=== PATIENT | female | born 1955 | race Caucasian/White ===

== ENCOUNTER 2023-07-24 12:50 | Outpatient (CLI) | payer MEDICARE ==
--- NOTE | 2023-08-01 09:38 | Mammography Report ---
BILATERAL DIGITAL SCREENING MAMMOGRAM 3D/2D: 07/24/2023 CLINICAL: Routine screening. No prior exams were available for comparison. There are scattered areas of fibroglandular density in both breasts (category b / 25%-50% glandular t issue). No significant masses, calcifications, or other findings are seen in either breast. IMPRESSION: NEGATIVE There is no mammographic evidence of malignancy. A 1 year screening mammogram is recommended. Based on the Tyrer Cuzick model (a risk assessment model) the patients lifetime risk is 4.4% and her 10 year risk is 2.2%. According to the ACR, ACS, and NCCN guidelines, an annual breast MRI exam goran g with mammogram is recommended if the patients lifetime risk is 20% or greater. This exam was interpreted at Station ID: [id number]. NOTE: For mammograms, a report in lay terms will be sent to the patient. Approximately 15% of breast malignancies will not be visualized mammographically. In the management of a palpable breast mass, a negative mammogram must not discourage biopsy of a clinically suspicious lesion. Electronically Signed By: oCnnie del toro/ian:07/31/2023 11:35:03 letter sent: No_Letter ACR BI-RADS Category 1: Negative 3341F PARENCHYMAL PATTERN: (A) - The breast(s) demonstrate(s) scattered fibroglandular densities. BI-RADS CATEGORY: (1) - 1 Mammogram [id number] 1 year screening LATERALITY: (B)
== END 2023-07-24 12:51 | disposition home or self-care (01) ==
LOC: DI.S 12:50
PROVIDERS: ATTEND Family Medicine
DX: Z12.31 Encounter for screening mammogram for malignant neoplasm of breast (principal); R92.323 Mammographic fibroglandular density, bilateral breasts

== ENCOUNTER 2024-06-22 08:00 | Outpatient (CLI) | payer MEDICARE ==
--- NOTE | 2024-06-22 19:26 | XRAY Report ---
PROCEDURE: Foot 3+V RT INDICATIONS: RIGHT FOOT PAIN TECHNIQUE: 3 views of the foot were acquired. COMPARISON: None. FINDINGS: Bones: There is mildly displaced fracture of the distal aspect of the fifth proximal phalanx. Angulat ion is present.. No suspicious bony lesions. Soft tissues: No tibiotalar joint effusion. Achilles tendon appears normal. IMPRESSION: Fifth proximal phalanx angulation secondary to fracture. Reviewed by: Bettina Stallings MD on 06/22/2024 7:25 PM PDT Approved by: Bettina Stallings MD on 06/22/2024 7:25 PM PDT Station ID: [id number]
== END 2024-06-22 23:59 | disposition home or self-care (01) ==
LOC: DI.S 08:00
PROVIDERS: ATTEND Registered Nurse
DX: S92.511A Displaced fracture of proximal phalanx of right lesser toe(s), initial encounter for closed fracture (principal)

== ENCOUNTER 2024-07-06 19:12 | Outpatient (CLI) | payer MEDICARE | END 2024-07-06 23:59 | disposition EMS.NT | LOC: EMS 19:12 | DX: R55 Syncope and collapse (principal); R11.10 Vomiting, unspecified ==

== ENCOUNTER 2024-07-06 20:09 | Outpatient (CLI) | payer MEDICARE | END 2024-07-06 23:59 | disposition short-term general hospital (02) | LOC: EMS 20:09 | DX: R55 Syncope and collapse (principal); R11.2 Nausea with vomiting, unspecified | CPT/HCPCS: A0425; A0427 ==